=== PATIENT | female | born 1965 | race American Indian/Alaskan Native ===

== ENCOUNTER 2017-07-04 12:41 | Outpatient (CLI) | payer BC ==
--- NOTE | 2017-07-04 13:16 | XRay Report ---
RIGHT KNEE: Knee pain. Standing views are obtained. The bony architecture is intact without evidence of fracture or dislocation. Well-preserved joint spaces and articular surfaces. Normal mineralization. No effusion nor significant soft tissue abnormality is seen. IMPRESSION: Normal right knee.
== END 2017-07-04 12:42 | disposition home or self-care (01) ==
LOC: SPVIMAG 12:41
PROVIDERS: ATTEND Orthopaedic Surgery Sports Medicine
DX: M25.561 Pain in right knee (principal)